=== PATIENT | female | born 1955 | race Caucasian/White ===

== ENCOUNTER 2016-12-24 06:36 | Emergency (ER) | payer OTHER ==
[~2016-12-24] VITALS: Ht 170.2 cm; Wt 75.0 kg
[2016-12-24 06:40] VITALS: BP 132/64; PULSE 86; RESP 20; O2SAT 99
--- NOTE | 2016-12-24 06:58 | ED.REPORT ---
HPI-General Illness Date of Service Dec 24, 2016 ED Provider: Dr. Scott A 61 year old female with a history of nephrolithiasis presents to the ED complaining of left abdominal pain onset this morning while the patient was getting ready for work. She laid down on her bed with no relief and pain became progressively worse. It is now described as excruciating and has been constant, not collicky in nature. Associated symptoms include diaphoresis and tingling sensation that travels up legs and is present in hands, the sensations being accompanied by nausea. The patient reports that the pain does not feel like past nephrolithiasis because it does not move. She denies any chest pain, rash , vomiting, SOB, diarrhea, or urge to have a BM. She reports no pertinent medical history or medication use, but has had a hysterectomy in the past. She did have an alcoholic drink last night. Nursing Notes Stated Complaint: ABDOMINAL PAIN Chief Complaint: Female Abdominal Pain Nursing Notes Reviewed: Yes Allergies: Coded Allergies: diphenhydramine (Verified Allergy, Unknown, heart race, 06/18/16) morphine (Verified Adverse Reaction, Unknown, hallucinations, 06/18/16) Scheduled PRN Ibuprofen (Ibuprofen) 800 Mg Tablet 800 MG PO TID PRN PRN For Pain General Time Seen by MD: 06:58 Chief Complaint Abdominal pain Hx Obtained From: Patient Arrived By: Walk-in Sudden in Onset?: Yes Onset Occurred: 1 - 4 hours ago Symptom Duration: Since onset Severity: Current: Severe Severity: Maximum: Severe Recent Healthcare: No recent doctor visit Similar Sx Previous: No Past Medical History Past Medical History Healthy nephrolithiasis Past Surgical History Reports: Hysterectomy (May 2016), Tonsillectomy Family History Reports: Coronary artery disease, Diabetes mellitus, Hypertension Smoking History Never Smoker Social History Had a drink last night. Alcohol Use: "Social" Drug Use: Denies drug use Ambulatory Status Independent Review of Systems Tingling sensation present in legs and hands. Denies urge to have BM. Full Review of Systems Respiratory: Denies: Shortness of breath Cardiovascular: Denies: Chest pain GI: Reports: Abdominal pain, Nausea, Denies: Diarrhea, Vomiting Skin: Reports Diaphoresis, Denies Rash Complete sys rev & neg: except as marked. Physical Exam Vital Signs Vital Signs Date Time Temp Pulse Resp B/P Pulse Ox O2 Delivery O2 Flow Rate FiO2 12/24/16 09:33 75 16 120/64 95 Room Air 12/24/16 06:40 36.7 86 20 132/64 99 Room Air Initial VS: Reviewed General/Constitutional: Awake, Alert Distress / Hydration: Positive: Distress mild Head / Eyes: Atraumatic, Normocephalic, PERRL, EOMI ENT: Atraumatic, Mucous membranes moist Neck: Atraumatic, Full range of motion Respiratory / Chest: Atraumatic, Breath sounds NL, Breath sounds = bilat, No respiratory distress, No rales, No rhonchi, No wheezing Cardiovascular: Heart rate NL, Heart sounds NL, No gallop, No murmurs, No rubs Abdomen: No guarding, No rebound Tenderness/Guarding/Rebound: Positive: Tender LUQ... (Without rebound or guarding.) Back: Atraumatic, Full range of motion Upper Extremities Upper Extremity / MS: Atraumatic, Full range of motion Wrist / Hand: Atraumatic, Full range of motion Lower Extremity / Pelvis / MS: Atraumatic, Full range of motion 2 + posterior tibial pulses Skin: Atraumatic, Color NL, No rash, Warm, Dry Neurologic: Oriented X3, Speech NL Psychiatric: Affect NL, Mood NL Interpretation & Diagnostics Lab Results Interpretation Result Diagram: 12/24/16 0740 12/24/16 0740 Test 12/24/16 07:40 12/24/16 08:02 White Blood Count 7.2th/mm3 (3.8-10.1) Red Blood Count 4.47mil/mm3 (3.90-5.20) Hemoglobin 12.8g/dL (12.0-15.6) Hematocrit 39.5% (35.0-46.0) Mean Corpuscular Volume 88.4fL (81-100) Mean Corpuscular Hemoglobin 28.6pg (27.0-35.0) Mean Corpuscular Hemoglobin Concent 32.4% (32.0-37.0) Red Cell Distribution Width 13.3% (12.3-15.4) Platelet Count 219bil/L (150-400) Neutrophils (%) (Auto) 81.4% (40-74) Lymphocytes (%) (Auto) 10.6% (14-46) Monocytes (%) (Auto) 7.2% (4-12) Eosinophils (%) (Auto) 0.6% (0-5) Basophils (%) (Auto) 0.1% (0-3) Sodium Level 140mEq/L (134-144) Potassium Level 4.3mEq/L (3.5-5.2) Chloride Level 104mEq/L (97-108) Carbon Dioxide Level 25mmol/L (18-29) Blood Urea Nitrogen 10mg/dL (6-24) Creatinine 0.60mg/dL (0.57-1.00) Estimat Glomerular Filtration Rate 147mL/min (>59) Glucose Level 112mg/dL (60-99) Calcium Level 9.4mg/dL (8.5-10.1) Magnesium Level 2.0mg/dL (1.6-2.6) Total Bilirubin 0.5mg/dL (0.0-1.2) Aspartate Amino Transf (AST/SGOT) 123U/L (0-50) Alanine Aminotransferase (ALT/SGPT) 216U/L (0-32) Alkaline Phosphatase 121U/L (25-165) Troponin T 0.010ug/L (0.0-0.011) Total Protein 6.7g/dL (6.4-8.4) Albumin 4.2g/dL (3.4-5.0) Lipase 26U/L (13-60) Urine Color Yellow (YELLOW) Urine Appearance Hazy (CLEAR,HAZY) Urine pH 8.0 (5.0-8.0) Urine Specific [place] 1.015 (1.003-1.035) Urine Protein Negativemg/dL (NEG,TRACE) Urine Glucose (UA) Negativemg/dL (NEGATIVE) Urine Ketones Negativemg/dL (NEGATIVE) Urine Occult Blood Moderate (NEGATIVE) Urine Nitrite Negative (NEGATIVE) Urine Bilirubin Negative (NEGATIVE) Urine Urobilinogen Normalmg/dL (NORMAL) Urine Leukocyte Esterase Trace (NEGATIVE) Urine RBC 11-50/hpf (0-2) Urine WBC 0-5/hpf (0-5) Urine Epithelial Cells Occasional/hpf (NONE-MOD) Urine Crystals None seen (NONE SEEN) Urine Bacteria Moderate/hpf (NONE-FEW) Urine Hyaline Casts None/lpf (NONE) Urine Granular Casts None seen (NONE SEEN) Urine Waxy Casts None seen (NONE SEEN) Urine Red Blood Cell Casts None seen (NONE SEEN) Urine White Blood Cell Casts None seen (NONE SEEN) Urine Mucus None seen (None Seen) Urine Trichomonas None seen (NONE SEEN) Urine Yeast None (NONE SEEN) Urinalysis Comment None Urine Culture Reflexed Indicated ECG Interpretation ECG Interpretation: Sinus rhythm. Rate is 75. Time: 06:42 Interpreted by: ED physician CT Abd / Pelvis Interpretation IMPRESSION: 1. Small left urinary bladder calculus. 2. Normal appendix. 3. New small hiatal hernia. Dictated by: Deloris Jarrell M.D. on 12/24/2016 at 8:44 Approved by: Deloris Jarrell M.D. on 12/24/2016 at 8:46 Interpretation / Wet Read by: Interpret - Radiologist Re-Eval/Medical Decision Med Decision/Clinical Course Left-sided abdominal pain which correlates with hematuria and a left sided kidney stone, incidentally there is mild transaminitis which does not seem to correlate with any identifiable pain on exam or imaging abnormalities. Patient's symptoms have dramatically improved. She will be discharged. Ibuprofen prescribed. Further verbal and written discharge and follow-up instructions given. Source of Hx: Old records Time of Eval: 08:29 Re-Evaluation/Progress Note: Rechecked patient. Pain is mildly improved without any intervention. Discussed that she has a lot of blood in her urine. Time of Eval: 08:57 Re-Evaluation/Progress Note: Rechecked patient who is feeling better. Re-examined RUQ of abdomen which is nontender and without focal rebound or guarding. Counseled Regarding: Diagnosis, Lab results, Need for follow-up, When/why to return to ED Discharge & Departure Primary Impression: Transaminitis Additional Impression: Kidney stone on left side Disposition: Home Discharge Condition All VS Reviewed: Yes Condition: Improved Patient Instructions: Acute Abdominal Pain (ED) Additional Instructions: You have a kidney stone that has already passed your bladder. This is likely why your symptoms are improving. Take ibuprofen 800 mg every 8 hours as needed for pain. Follow-up with your primary care doctor. You do have mild elevation of your liver enzymes which will need follow-up however I do not think that it is an emergency at this point. Return to the ER if you develop worsening symptoms such as high fever, persistent vomiting, severe uncontrollable pain, or other concerns. Referrals: Tg Palomares ARNP (PCP) Scribe Attestation Portions of this note were transcribed by Bridger Sage. I, Dr. Scott, personally performed the history, physical exam, and medical decision-making; I reviewed and confirmed the accuracy of the information in the transcribed note. Signed by: Kiya Garcia, 12/24/2016, 0908. copies to: Tg Palomares ARNP O'Kelley, Timothy S DO Dec 24, 2016 06:58 Birdger Sage Dec 24, 2016 07:08
[2016-12-24] MEDS ORDERED: 0.9% Sodium Chloride 1,000 ML IV ONE (07:10)
[2016-12-24] MEDS ORDERED: Ondansetron 2 mg/mL 2 mL Inj IVPUSH PRN (07:10)
[2016-12-24 07:53] LABS: BASOPHILS % (AUTO) 0.1 % (0-3); EOSINOPHILS % (AUTO) 0.6 % (0-5); MONOCYTES % (AUTO) 7.2 % (4-12); Mean Corpuscular Hemoglobin 28.6 pg (27.0-35.0); Mean Corpuscular Volume 88.4 fL (81-100); NEUTROPHILS % (AUTO) 81.4 % (40-74); Platelet Count 219 bil/L (150-400)
[2016-12-24 08:16] LABS: APPEARANCE,URINE HAZY (CLEAR,HAZY); COLOR,URINE YELLOW (YELLOW); OCCULT BLOOD,URINE MODERATE (NEGATIVE); UROBILINOGEN,URINE NORMAL (NORMAL)
[2016-12-24 08:16] LABS: TROPONIN T 0.01 ug/L (0.0-0.011)
[2016-12-24] MEDS ORDERED: Ketorolac 15 mg/mL Inj IVPUSH ONE (08:30)
--- NOTE | 2016-12-24 08:48 | DRSVH ---
PROCEDURE: CT KUB ([id number]) INDICATIONS: left sided abd pain TECHNIQUE: Noncontrast 5 mm thick sections acquired from the diaphragms to the symphysis. 5 mm thick coronal an d sagittal reformats were then performed. For radiation dose reduction, the following was used: aut omated exposure control, adjustment of mA and/or kV according to patient size. COMPARISON: [facility], CT, KUB - CT ([facility]), 08/16/2006, 0:10. FINDINGS: Image quality: Excellent. Lung bases: Lung bases are clear. Heart size is normal. Urinary system: Both kidneys are normal in size. No kidney stones. No hydronephrosis or perinephri c fat stranding. Both ureters appear non-dilated throughout their expected courses. Bladder wall th ickness is normal. There is a 2 mm diameter calculus within the left posterior urinary bladder adjace nt to the ureterovesical junction. Other solid organs: Liver and spleen are normal in size. Gallbladder is within normal limits on non contrast imaging. Pancreas is normal in contours. No adrenal nodules. Peritoneum and bowel: There is a new small hiatal hernia. Unenhanced bowel loops demonstrate normal wall thickness and caliber. No free fluid or air. Normal appendix. Nodes and vessels: No retroperitoneal or mesenteric adenopathy by size criteria. Aorta and inferior vena cava are normal in caliber. Abdominal wall: No ventral hernias. Pelvis: No free pelvic fluid. No inguinal hernias or adenopathy. Bones: No suspicious bony lesions. No vertebral body compression fractures. IMPRESSION: 1. Small left urinary bladder calculus. 2. Normal appendix. 3. New small hiatal hernia. Dictated by: Deloris Jarrell M.D. on 12/24/2016 at 8:44 Approved by: Deloris Jarrell M.D. on 12/24/2016 at 8:46
[2016-12-24] MEDS ORDERED: IBUP800T28 PO (09:06)
[2016-12-24 09:33] VITALS: BP 120/64; PULSE 75; RESP 16; O2SAT 95
== END 2016-12-24 09:34 | disposition home or self-care (01) ==
LOC: SED 06:36
DX: N20.0 Calculus of kidney (principal); R74.0 Nonspecific elevation of levels of transaminase and lactic acid dehydrogenase [LDH]; R20.2 Paresthesia of skin; R11.0 Nausea; Z88.5 Allergy status to narcotic agent; Z88.8 Allergy status to other drugs, medicaments and biological substances
CPT/HCPCS: 36415; 74176; 80053; 81000; 83690; 83735; 84484; 85025; 87086; 93005; 96361; 96374; 96375; 99285; J1885; J2405; J7030